=== PATIENT | female | born 1990 | race Caucasian/White ===

== ENCOUNTER 2018-07-27 09:19 | Emergency (ER) | payer OTHER, SELFPAY ==
[2018-07-27 09:26] VITALS: BP 136/73; PULSE 90; RESP 20; TEMP 36.8; O2SAT 100; BMI 25.2
--- NOTE | 2018-07-27 09:29 | ED.UPPEXIN ---
HPI - Extremity Injury (Upper) General Chief Complaint: Extremity Injury, Upper Stated Complaint: LEFT SHOULDER PAIN Time Seen by Provider: 07/27/18 09:29 Source: patient Mode of arrival: ambulatory Limitations: no limitations History of Present Illness HPI narrative: Patient comes to the emergency department with complaint of left shoulder pain. Patient states she fell 2 months ago. She fell off a ladder and landed on her back, she doesn't remember exactly how she landed. She was 3 ft in the air. Patient has since had pain in her shoulder since then. It's worse with abduction and elevation of shoulder. Mild tingling in fingers, no weakness, repetitive movements make it worse. 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 She states that she has been on light duty but without improvement. She has not been taking OTC pain meds. No prior injuries. Hx of asthma and mental health, denies prior surgical history. No current PCP Related Data Home Medications Medication Instructions Recorded Confirmed albuterol sulfate HFA 90 2 puff INHALATION Q4-6H PRN 12/07/17 07/27/18 mcg/actuation aerosol inhaler escitalopram 10 mg tablet 10 mg PO QPM 05/30/18 07/27/18 [facility] 1 tab PO PRN PRN 07/27/18 07/27/18 Previous Rx's Medication Instructions Recorded prednisone 20 mg PO DAILY #5 tab 07/27/18 Allergies Allergy/AdvReac Type Severity Reaction Status Date / Time No Known Drug Allergies Allergy Verified 05/30/18 10:35 Review of Systems Review of Systems All systems reviewed & are unremarkable except as noted in HPI and below Constitutional Denies weakness ENT Ears, Nose, Mouth, and Throat: Denies neck pain Cardiovascular Denies chest pain and Denies dyspnea Respiratory Denies cough and Denies dyspnea Musculoskeletal Reports as per HPI, Denies back pain (no pain but feels stiff), Denies myalgias, Denies atrophy, Denies deformity, Reports arthralgias (left shoulder radiates to collarbone), Reports joint swelling, Denies limited range of motion, Denies muscle weakness, Denies neck pain, Denies numbness, Reports radiating pain into limb (partially down arm), Reports stiffness (neck/thoracic back) and Reports tingling (fingers) Integumentary/Breasts Denies erythema, Denies rash and Denies unusual bruising Neurologic Denies numbness, Denies sensory deficit, Reports tingling (fingers) and Denies weakness PFSH Medical History Asthma (Acute) Social History Smoking Status: Never smoker Exam Narrative Exam Narrative: GEN: well nourished, well appearing female, alert and oriented x 3, patient appears to be in mild distress. HEENT: Atraumatic, pupils are equal round reactive to light, extraocular movements are intact, nares are clear, TMs are clear with no fluid, there is no conjunctival pallor. Throat is clear without any exudates, erythema, tonsillar enlargement or uvular deviation HEART: Regular rate and rhythm without murmur, clicks, rubs. LUNGS:Lungs clear to auscultation, no wheezes, rales, crackles, chest moves symmetrically MSCL: Patient does not have any bony tenderness of the scapula, no clavicular bony tenderness. Patient has some mild tenderness over the distal AC. She also has tenderness over the proximal biceps tendon particularly with internal and external rotation of the arm. Patient has normal sensation throughout the arm. Muscle strength is 5/5, patient is not any bony tenderness of the humerus, elbow forearm wrist or hand. She does not have any swelling. She has not any erythema or color changes. No joint swelling or ballotable effusion. Patient has 2+ radial pulse and cap refill less than 2 sec in all 5 fingers. no muscle atrophy, full range of motion, normal gait NEURO:CN 2-12 intact, sensation normal, reflexes 2/4 upper and lower extremities Initial Vital Signs Initial Vital Signs: Vital Signs Temperature 98.2 F 07/27/18 09:26 Pulse Rate 90 07/27/18 09:26 Respiratory Rate 20 07/27/18 09:26 Blood Pressure 136/73 07/27/18 09:26 Pulse Oximetry 100 07/27/18 09:26 Course Orders Ordered: ED Orders 07/27/18 09:37 XR shoulder LT min 2V Stat Vital Signs - 8 hr 07/27/18 09:26 Temperature 98.2 F Pulse Rate 90 Respiratory Rate 20 Blood Pressure 136/73 Pulse Oximetry 100 MDM - Extremity Injury (Upper) Imaging Data shoulder xray: Radiologist's impression: [address] [address] XRay Report Signed Patient: Jackie Cota MR#: [id number] : 1990 Acct:[id number] Age/Sex: 28 / F Date of Service: 07/27/18 Loc: ED Accession Number: [id number] Procedure: XR shoulder LT min 2V Ordering Provider: Mary Jane Alarcon D.O. PROCEDURE: XR SHOULDER LT MIN 2V INDICATIONS: left shoulder pain s/p fall 2 months. bicep tendon TECHNIQUE: 3 views of the shoulder were acquired. COMPARISON: None. FINDINGS: Bones: No fractures or dislocations. No suspicious bony lesions. Visualized ribs appear intact. Soft tissues: No suspicious soft tissue calcifications. IMPRESSION: Normal for age. Dictated by: Jeffy Saunders M.D. on 07/27/2018 at 9:54 Approved by: Jeffy Saunders M.D. on 07/27/2018 at 9:[address] [facility] Narrative Medical decision making narrative: Patient has some tenderness over the proximal biceps tendon with internal-external rotation. There is no calcification on x-ray but otherwise patient has a fairly normal exam. She does have some discomfort with raising her arm but does not seem to have any weakness so my suspicion for a rotator cuff injury is less. Patient was given referral with Orthopedic surgery she does not have primary care and has had symptoms for 2 months. She may need an MRI of her symptoms not improve but was given a short-term script of steroids and told to try ibuprofen NSAIDs to help with inflammation. Discharge Plan Departure Patient Disposition: Home Clinical Impression: Left shoulder tendinitis Discharge Date/Time: 07/27/18 10:18 Interventions: ED Discharge Assessment Last Done: 07/27/18 10:18 Instructions: DI for Tendinitis Activity Restrictions/Additional Instructions: Follow up with primary care or orthopedic surgery, call for an appointment. Take ibuprofen 600mg every 6 hours as needed for pain, this is helpful for pain and inflammation. Take steroids until gone. Take this medication with food. This Rx was sent to [facility]. Decrease use as much as you are able. Return to the ER for loss of sensation, new weakness, inability to lift or use your arm, decreased can conveyor feeder or other new or concerning symptoms.n Prescriptions: New prednisone 20 mg tablet 20 mg PO DAILY Qty: 5 RF: 0 No Action albuterol sulfate 90 mcg/actuation HFA aerosol inhaler 2 puff INHALATION Q4-6H PRN (Reason: Shortness Of Breath) RF: 0 escitalopram oxalate [Lexapro] 10 mg tablet 10 mg PO QPM RF: 0 [facility] 1 tab PO PRN PRN (Reason: Allergy Symptoms) RF: 0 Referrals: Keerthi Waters MD [Physician] -
--- NOTE | 2018-07-27 09:38 | ED_ITS ---
HPI - Extremity Injury (Upper) General Chief Complaint: Extremity Injury, Upper Stated Complaint: LEFT SHOULDER PAIN Time Seen by Provider: 07/27/18 09:29 Source: patient Mode of arrival: ambulatory Limitations: no limitations History of Present Illness HPI narrative: Patient comes to the emergency department with complaint of left shoulder pain. Patient states she fell 2 months ago. She fell off a ladder and landed on her back, she doesn't remember exactly how she landed. She was 3 ft in the air. Patient has since had pain in her shoulder since then. It's worse with abduction and elevation of shoulder. Mild tingling in fingers, no weakness, repetitive movements make it worse. 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 She states that she has been on light duty but without improvement. She has not been taking OTC pain meds. No prior injuries. Hx of asthma and mental health, denies prior surgical history. No current PCP Related Data Home Medications Medication Instructions Recorded Confirmed albuterol sulfate HFA 90 2 puff INHALATION Q4-6H PRN 12/07/17 07/27/18 mcg/actuation aerosol inhaler escitalopram 10 mg tablet 10 mg PO QPM 05/30/18 07/27/18 [facility] 1 tab PO PRN PRN 07/27/18 07/27/18 Previous Rx's Medication Instructions Recorded prednisone 20 mg PO DAILY #5 tab 07/27/18 Allergies Allergy/AdvReac Type Severity Reaction Status Date / Time No Known Drug Allergies Allergy Verified 05/30/18 10:35 Review of Systems Review of Systems All systems reviewed & are unremarkable except as noted in HPI and below Constitutional Denies weakness ENT Ears, Nose, Mouth, and Throat: Denies neck pain Cardiovascular Denies chest pain and Denies dyspnea Respiratory Denies cough and Denies dyspnea Musculoskeletal Reports as per HPI, Denies back pain (no pain but feels stiff), Denies myalgias , Denies atrophy, Denies deformity, Reports arthralgias (left shoulder radiates to collarbone), Reports joint swelling, Denies limited range of motion, Denies muscle weakness, Denies neck pain, Denies numbness, Reports radiating pain into limb (partially down arm), Reports stiffness (neck/thoracic back) and Reports tingling (fingers) Integumentary/Breasts Denies erythema, Denies rash and Denies unusual bruising Neurologic Denies numbness, Denies sensory deficit, Reports tingling (fingers) and Denies weakness PFSH Medical History Asthma (Acute) Social History Smoking Status: Never smoker Exam Narrative Exam Narrative: GEN: well nourished, well appearing female, alert and oriented x 3, patient appears to be in mild distress. HEENT: Atraumatic, pupils are equal round reactive to light, extraocular movements are intact, nares are clear, TMs are clear with no fluid, there is no conjunctival pallor. Throat is clear without any exudates, erythema, tonsillar enlargement or uvular deviation HEART: Regular rate and rhythm without murmur, clicks, rubs. LUNGS:Lungs clear to auscultation, no wheezes, rales, crackles, chest moves symmetrically MSCL: Patient does not have any bony tenderness of the scapula, no clavicular bony tenderness. Patient has some mild tenderness over the distal AC. She also has tenderness over the proximal biceps tendon particularly with internal and external rotation of the arm. Patient has normal sensation throughout the arm. Muscle strength is 5/5, patient is not any bony tenderness of the humerus , elbow forearm wrist or hand. She does not have any swelling. She has not any erythema or color changes. No joint swelling or ballotable effusion. Patient has 2+ radial pulse and cap refill less than 2 sec in all 5 fingers. no muscle atrophy, full range of motion, normal gait NEURO:CN 2-12 intact, sensation normal, reflexes 2/4 upper and lower extremities Initial Vital Signs Initial Vital Signs: Vital Signs Temperature 98.2 F 07/27/18 09:26 Pulse Rate 90 07/27/18 09:26 Respiratory Rate 20 07/27/18 09:26 Blood Pressure 136/73 07/27/18 09:26 Pulse Oximetry 100 07/27/18 09:26 Course Orders Ordered: ED Orders 07/27/18 09:37 XR shoulder LT min 2V Stat Vital Signs - 8 hr 07/27/18 09:26 Temperature 98.2 F Pulse Rate 90 Respiratory Rate 20 Blood Pressure 136/73 Pulse Oximetry 100 MDM - Extremity Injury (Upper) Imaging Data shoulder xray: Radiologist's impression: [address] [address] XRay Report Signed Patient: Jackie Cota MR#: [id number] : 1990 Acct:[id number] Age/Sex: 28 / F Date of Service: 07/27/18 Loc: ED Accession Number: [id number] Procedure: XR shoulder LT min 2V Ordering Provider: Mary Jane Alarcon D.O. PROCEDURE: XR SHOULDER LT MIN 2V INDICATIONS: left shoulder pain s/p fall 2 months. bicep tendon TECHNIQUE: 3 views of the shoulder were acquired. COMPARISON: None. FINDINGS: Bones: No fractures or dislocations. No suspicious bony lesions. Visualized ribs appear intact. Soft tissues: No suspicious soft tissue calcifications. IMPRESSION: Normal for age. Dictated by: Jeffy Saunders M.D. on 07/27/2018 at 9:54 Approved by: Jeffy Saunders M.D. on 07/27/2018 at 9:54 [facility] Narrative Medical decision making narrative: Patient has some tenderness over the proximal biceps tendon with internal-external rotation. There is no calcification on x-ray but otherwise patient has a fairly normal exam. She does have some discomfort with raising her arm but does not seem to have any weakness so my suspicion for a rotator cuff injury is less. Patient was given referral with Orthopedic surgery she does not have primary care and has had symptoms for 2 months. She may need an MRI of her symptoms not improve but was given a short-term script of steroids and told to try ibuprofen NSAIDs to help with inflammation. Discharge Plan Departure Patient Disposition: Home Clinical Impression: Left shoulder tendinitis Discharge Date/Time: 07/27/18 10:18 Interventions: ED Discharge Assessment Last Done: 07/27/18 10:18 Instructions: DI for Tendinitis Activity Restrictions/Additional Instructions: Follow up with primary care or orthopedic surgery, call for an appointment. Take ibuprofen 600mg every 6 hours as needed for pain, this is helpful for pain and inflammation. Take steroids until gone. Take this medication with food. This Rx was sent to [facility]. Decrease use as much as you are able. Return to the ER for loss of sensation, new weakness, inability to lift or use your arm, decreased robot designer or other new or concerning symptoms.n Prescriptions: New prednisone 20 mg tablet 20 mg PO DAILY Qty: 5 RF: 0 No Action albuterol sulfate 90 mcg/actuation HFA aerosol inhaler 2 puff INHALATION Q4-6H PRN (Reason: Shortness Of Breath) RF: 0 escitalopram oxalate [Lexapro] 10 mg tablet 10 mg PO QPM RF: 0 [facility] 1 tab PO PRN PRN (Reason: Allergy Symptoms) RF: 0 Referrals: Keerthi Waters MD [Physician] -
== END 2018-07-27 10:18 | disposition home or self-care (01) ==
PROVIDERS: Emergency Provider Emergency Medicine
DX: M75.82 Other shoulder lesions, left shoulder (principal); W11.XXXA Fall on and from ladder, initial encounter
CPT/HCPCS: 73030; 99282; 99283

== ENCOUNTER 2024-08-26 06:19 | Emergency (ER) | payer OTHER, SELFPAY ==
[2024-08-26 06:26] VITALS: BP 91/52; PULSE 71; RESP 15; TEMP 37.2; O2SAT 99; BMI 22.8
--- NOTE | 2024-08-26 07:04 | ED.URI ---
HPI - URI/Sore Throat General Chief Complaint: Upper Respiratory Symptoms Stated Complaint: blurry vision, almost passed out Time Seen by Provider: 08/26/24 06:21 Source: patient Mode of arrival: Ambulatory History of Present Illness HPI Narrative: Patient is a healthy 34-year-old female presents to day with almost passing out. She reports not feeling well for the last 5 days. She reports feeling extremely tired and fatigue sleeping a lot. She did have a fever of 101 at 1 point. She was drinking fluids she was having some Gatorade and liquid IV, she did eat a little bit yesterday. She reports significant decrease in appetite mild nausea no vomiting. No chest pain shortness of breath or sore throat. No headache or neck pain no abdominal pain. No painful frequent urination. She takes no medications. Today she was standing when suddenly she felt like she was going to pass out her vision got blurry she had to sit down she did not pass out she did not fall or injure her head. No chest pain or palpitations Related Data Previous Rx's Medication Instructions Recorded albuterol sulfate 90 mcg/actuation 2 puff inhalation Q4-6H PRN 05/03/19 aerosol inhaler Shortness Of Breath #8.5 grams Allergies Allergy/AdvReac Type Severity Reaction Status Date / Time No Known Drug Allergies Allergy Verified 01/30/20 14:01 Patient History Medical History Lung nodule seen on imaging study (01/2020) Hemangioma Asthma Social History Smoking Status: Never smoker second hand exposure: No alcohol intake: never substance use type: does not use Smoking Status: Never smoker alcohol intake frequency: 3 or more drinks per day Exam Initial Vital Signs Initial Vital Signs: Vital Signs Temperature 99 F 08/26/24 06:26 Pulse Rate 71 08/26/24 06:26 Respiratory Rate 15 08/26/24 06:26 Blood Pressure 91/52 L 08/26/24 06:26 Pulse Oximetry 99 08/26/24 06:26 Oxygen Delivery Method Room Air 08/26/24 06:26 GENERAL: Alert very well-appearing 34-year-old female and in no acute distress. HEENT: Head atraumatic,EOMI, pupils reactive, face symmetric, moist mucous membranes PHARYNX: No erythema, no tonsillar exudate, no cervical lymphadenopathy CARDIOVASCULAR: Regular rate and rhythm without murmurs, rubs or gallops. RESPIRATORY: Breath sounds equal bilaterally, no wheezes rales or rhonchi. ABDOMEN: Soft, nontender. Normoactive bowel sounds all 4 quadrants. No guarding or rebound. EXTREMITIES: Normal range of motion, no clubbing or edema. Neurovascularly intact NEUROLOGICAL: Alert and oriented x4.Normal gait and speech. Cranial nerves II through XII grossly intact. SKIN: Warm, dry, no laceration, no petechiae, no rashes or lesions. Course Orders Ordered: ED Orders 08/26/24 06:33 Covid-19 + FLU A/B + RSV - PCR Stat 08/26/24 06:57 Ictotest Urine Stat Vital Signs Vital signs: Vital Signs - 8 hr 08/26/24 06:26 08/26/24 07:19 08/26/24 07:26 Temperature 99 F Pulse Rate 71 75 Respiratory Rate 15 Blood Pressure 91/52 L 109/71 Pulse Oximetry 99 100 Oxygen Delivery Method Room Air Room Air 08/26/24 07:26 08/26/24 07:27 08/26/24 07:30 Temperature Pulse Rate 75 80 Respiratory Rate Blood Pressure 109/71 119/58 L Pulse Oximetry 100 Oxygen Delivery Method 08/26/24 07:30 Temperature Pulse Rate 76 Respiratory Rate Blood Pressure Pulse Oximetry 100 Oxygen Delivery Method MDM - URI/Sore Throat Lab Data Labs: Lab Results 08/26/24 Range/Units 06:33 SARS-CoV-2 (PCR) Negative (Negative) Influenza A (RT-PCR) Flu a positive H (NEGATIVE) Influenza B (RT-PCR) Flu b negative (NEGATIVE) RSV (PCR) Negative (Negative) Point of Care Testing Test Results Negative Glucose POC 81 Urine Dip Bedside Urine Glucose Negative Bedside Urine Bilirubin + 1 Bedside Urine Ketone - Negative Urine Specific [place] 1.025 Bedside Urine Occult Blood - Negative Bedside Urine pH 6.0 Bedside Urine Protein +/- 15 Bedside Urine Urobilinogen +/- 1mg Bedside Urine Nitrite - Negative Bedside Urine Leukocytes +/- 15 Esterase MDM Narrative Medical decision making narrative: Patient is a healthy 34-year-old female who presents with generalized fatigue and weakness. Initially hypotensive with blood pressure 91/52. However awake alert oriented no focal deficits repeat blood pressure is 110. She is drinking fluids. Eating some crackers repeat blood pressure is systolic 109. She appears well. Viral panel positive for influenza A. Urine doesn't show UTI and she isn't having symtpoms I suspect she had a near syncopal episode but is now tolerating oral fluids appears well nontoxic. We discussed blood work her blood pressure remaining stable at this time supportive care only. Discharge Plan Departure Patient Disposition: Home Clinical Impression: Influenza A Instructions: DI for Influenza -- Adult Activity Restrictions/Additional Instructions: *You have been diagnosed with influenza a *What to do: At this time continue to drink fluids recommend Gatorade or liquid IV increase diet as tolerated *Continue to take medications as directed Tylenol or Motrin as needed *Follow up with your primary care provider in 2-3 days or call [phone] *Return to ER if you should have passing out dizziness lightheadedness shortness of breath or any new, worsening or concerning symptoms Prescriptions: No Action albuterol sulfate 90 mcg/actuation HFA aerosol inhaler 2 puff INHALATION Q4-6H PRN (Reason: Shortness Of Breath) Qty: 8.5 0RF Stand Alone Forms: Patient Portal/API/Survey
[2024-08-26 07:19] VITALS: PULSE 75; O2SAT 100
[2024-08-26 07:20] LABS: Influenza A - CEPHEID Flu A POSITIVE (NEGATIVE); Influenza B - CEPHEID Flu B NEGATIVE (NEGATIVE); Respiratory Syncytial Virus Negative (Negative)
[2024-08-26 07:21] LABS: COVID-19 CEPHEID 4-PLEX PCR Negative (Negative)
[2024-08-26 07:26] VITALS: BP 109/71; PULSE 75; O2SAT 100
[2024-08-26 07:27] VITALS: BP 109/71; PULSE 80
[2024-08-26 07:30] VITALS: BP 119/58; PULSE 76; O2SAT 100
[2024-08-26 08:18] LABS: Ictotest Urine Negative (Negative)
== END 2024-08-26 07:54 | disposition home or self-care (01) ==
PROVIDERS: Emergency Medicine; Emergency Provider Emergency Medicine
DX: J10.1 Influenza due to other identified influenza virus with other respiratory manifestations (principal)
CPT/HCPCS: 0241U; 81003; 81025; 82962; 99282